=== PATIENT | female | born 1960 | race Hispanic/Latino ===

== ENCOUNTER 2022-03-29 19:49 | Emergency (ER) | payer MEDICARE ==
[2022-03-29 23:19] LABS: Basophils # (Auto) 0.1 K/mm3 (0.0-0.1); Basophils % (Auto) 1.1 % (0.0-1.8); Eosinophils # (Auto) 0.1 K/mm3 (0.0-0.4); Eosinophils % (Auto) 1.5 % (0.0-4.3); Hematocrit 47.3 % (30.3-42.9); Hemoglobin 16.5 gm/dl (10.1-14.3); Lymphocytes # (Auto) 1.6 K/mm3 (1.2-5.4); Lymphocytes % (Auto) 18.8 % (13.4-35.0); Mean Corpuscular HGB Conc 35 % (30-34); Mean Corpuscular Volume 88 fl (79-97); Monocytes # (Auto) 0.5 K/mm3 (0.0-0.8); Monocytes % (Auto) 5.8 % (0.0-7.3); Platelet Count 169 K/mm3 (140-440); Red Blood Count 5.38 M/mm3 (3.65-5.03); Red Cell Distribution Width 15.1 % (13.2-15.2)
[2022-03-29 23:40] LABS: Alanine Aminotransferase 11 units/L (7-56); Albumin 4.7 g/dL (3.9-5); BUN/Creatinine Ratio 7; Blood Urea Nitrogen 7 mg/dL (7-17); Calcium 9.3 mg/dL (8.4-10.2); Hemolysis Index 5
--- NOTE | 2022-03-30 01:42 | Emergency Department Report ---
ED Abdominal Pain HPI - General Chief Complaint: Abdominal Pain Stated Complaint: ALVARADO/ABD PAIN Time Seen by Provider: 03/30/22 00:44 Source: patient, EMS Mode of arrival: Stretcher Limitations: No Limitations - History of Present Illness MD Complaint: abdominal pain -: Gradual, days(s) (4) Location: epigastric Radiation: none Migration to: no migration Severity: mild Quality: aching, sharp Consistency: constant Associated Symptoms: denies other symptoms. denies: nausea, vomiting, dysuria, hematemesis - Related Data Home Medications Medication Instructions Recorded Confirmed Last Taken Acetaminophen [Acetaminophen 8 650 mg PO Q4H PRN 09/11/16 09/11/16 Unknown Hour] Baclofen [Lioresal] 5 mg PO TID PRN 09/11/16 09/11/16 Unknown Citalopram [celeXA] 20 mg PO QDAY 09/11/16 09/11/16 Unknown Docusate Sodium [Colace] 100 mg PO BID PRN 09/11/16 09/11/16 Unknown Folic Acid [Folvite] 1 mg PO QDAY 09/11/16 09/11/16 Unknown Gabapentin [Neurontin] 400 mg PO Q8HR 09/11/16 09/11/16 Unknown Levothyroxine [Synthroid] 150 mcg PO QAM 09/11/16 09/11/16 Unknown Magnesium Hydroxide [Milk of 30 ml PO Q12H PRN 09/11/16 09/11/16 Unknown Magnesia] Multivitamin Tab W-MINERAL 1 each PO QD 09/11/16 09/11/16 Unknown [Multiple Vitamin/Mineral (Theragran M)] Ondansetron [Zofran Odt] 4 mg PO Q8H 09/11/16 09/11/16 Unknown Simvastatin (Nf) [Zocor TAB] 20 mg PO QHS 09/11/16 09/11/16 Unknown Thiamine [Vitamin B-1] 100 mg PO QDAY 09/11/16 09/11/16 Unknown buprenorphine hcl [Subutex (Nf)] 4 mg SL BID 09/11/16 09/11/16 Unknown lisinopriL [Zestril TAB] 10 mg PO QDAY 09/11/16 09/11/16 Unknown Previous Rx's Medication Instructions Recorded Last Taken Type Hyoscyamine Subl [Levsin Sl 0.125 0.125 mg SL Q6HR PRN #20 tab 03/30/22 Unknown Rx TAB] Allergies Allergy/AdvReac Type Severity Reaction Status Date / Time codeine Allergy Rash Verified 09/11/16 15:01 Sulfa (Sulfonamide Allergy Unknown Verified 09/11/16 15:01 Antibiotics) ED Review of Systems ROS: Stated complaint: ALVARADO/ABD PAIN Other details as noted in HPI Comment: All other systems reviewed and negative Neurological: headache (Headache she woke with the other this morning is improving but not yet resolved. No nausea, no vomiting, no blurred vision) ED Past Medical Hx - Past Medical History Previous Medical History?: Yes Hx Hypertension: Yes 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) Hx Diabetes: No Hx GERD: Yes Hx Arthritis: Yes Hx Seizures: No Hx Psychiatric Treatment: Yes (anxiety,depression) Hx Dementia: No Additional medical history: fibromyaglia, hypothyroidism - Surgical History Past Surgical History?: Yes Hx Cholecystectomy: Yes - Social History Smoking Status: Never Smoker Substance Use Type: None - Medications Home Medications: Home Medications Medication Instructions Recorded Confirmed Last Taken Type Acetaminophen [Acetaminophen 8 650 mg PO Q4H PRN 09/11/16 09/11/16 Unknown History Hour] Baclofen [Lioresal] 5 mg PO TID PRN 09/11/16 09/11/16 Unknown History Citalopram [celeXA] 20 mg PO QDAY 09/11/16 09/11/16 Unknown History Docusate Sodium [Colace] 100 mg PO BID PRN 09/11/16 09/11/16 Unknown History Folic Acid [Folvite] 1 mg PO QDAY 09/11/16 09/11/16 Unknown History Gabapentin [Neurontin] 400 mg PO Q8HR 09/11/16 09/11/16 Unknown History Levothyroxine [Synthroid] 150 mcg PO QAM 09/11/16 09/11/16 Unknown History Magnesium Hydroxide [Milk of 30 ml PO Q12H PRN 09/11/16 09/11/16 Unknown History Magnesia] Multivitamin Tab W-MINERAL 1 each PO QD 09/11/16 09/11/16 Unknown History [Multiple Vitamin/Mineral (Theragran M)] Ondansetron [Zofran Odt] 4 mg PO Q8H 09/11/16 09/11/16 Unknown History Simvastatin (Nf) [Zocor TAB] 20 mg PO QHS 09/11/16 09/11/16 Unknown History Thiamine [Vitamin B-1] 100 mg PO QDAY 09/11/16 09/11/16 Unknown History buprenorphine hcl [Subutex (Nf)] 4 mg SL BID 09/11/16 09/11/16 Unknown History lisinopriL [Zestril TAB] 10 mg PO QDAY 09/11/16 09/11/16 Unknown History Hyoscyamine Subl [Levsin Sl 0.125 0.125 mg SL Q6HR PRN #20 tab 03/30/22 Unknown Rx TAB] ED Physical Exam - General Limitations: No Limitations General appearance: alert, in no apparent distress - Head Head exam: Present: atraumatic, normocephalic, normal inspection - Eye Eye exam: Present: normal appearance. Absent: conjunctival injection, nystagmus Pupils: Present: normal accommodation - ENT ENT exam: Present: mucous membranes moist - Neck Neck exam: Present: normal inspection - Respiratory Respiratory exam: Present: normal lung sounds bilaterally. Absent: respiratory distress - Cardiovascular Cardiovascular Exam: Present: regular rate, normal rhythm. Absent: systolic murmur, diastolic murmur, rubs, gallop - GI/Abdominal GI/Abdominal exam: Present: soft, normal bowel sounds - Extremities Exam Extremities exam: Present: normal inspection - Back Exam Back exam: Present: normal inspection - Neurological Exam Neurological exam: Present: alert, oriented X3, CN II-XII intact, normal gait, motor sensory deficit, reflexes normal - Psychiatric Psychiatric exam: Present: normal affect, normal mood. Absent: anxious, flat affect - Skin Skin exam: Present: warm, dry, intact, normal color. Absent: rash ED Course Vital Signs 03/29/22 20:25 Temperature 98 F Pulse Rate 100 H Respiratory 18 Rate Blood Pressure 142/92 O2 Sat by Pulse 98 Oximetry ED Medical Decision Making - Lab Data Result diagrams: 03/29/22 22:57 03/29/22 22:57 - Medical Decision Making This patient presents with abdominal pain of unclear etiology. Their evaluation has not identified a emergent etiology for the abdominal pain. Specifically, given the very benign exam, normal laboratory studies, and lack of significant risk factors, I have a very low suspicion for appendicitis, ischemic bowel, bowel perforation, or any other life threatening disease. I have discussed with the patient the level of uncertainty with undifferentiated abdominal pain and clearly explained the need to follow-up as noted on the discharge instructions, or return to the Emergency Department immediately if the pain worsens, develops fever, persistent and uncontrollable vomiting, or for any new symptoms or concerns. I discussed with the patient that this presentation today for abd ominal pain could represent a significant risk for an acute abdominal process. Although the tests in the ED were essentially normal, there is still a possibility of a process such as appendicitis, diverticulitis, cholecystitis, ulcer, early bowel obstruction, mesenteric ischemia, kidney stone, or even kidney infection which could subsequently cause disability or . The patient understands that they must return within 24 hours for a recheck or see their physician within 24 hours for re-exam due to the possibility of significant surgical or medical process. Critical care attestation.: If time is entered above; I have spent that time in minutes in the direct care of this critically ill patient, excluding procedure time. ED Disposition Clinical Impression: Abdominal pain Disposition: 01 HOME / SELF CARE / HOMELESS Is pt being admited?: No Does the pt Need Aspirin: No Condition: Stable Instructions: Abdominal Pain, Adult, Abdominal Pain (ED), Preventing Gastrointestinal Problems During Exercise Prescriptions: Hyoscyamine Subl [Levsin Sl 0.125 TAB] 0.125 mg SL Q6HR PRN #20 tab PRN Reason: ABDOMINAL PAIN Referrals: [facility] [Provider Group] - 3-5 Days
[2022-03-30 02:13] LABS: Bacteria,Urine 1+ /HPF (Negative); Bilirubin,Urine NEG (Negative); Blood,Urine NEG (Negative); Color,Urine Yellow (Yellow); Urobilinogen,Urine < 2.0 mg/dL (<2.0)
[2022-03-30] MEDS ORDERED: IBUPROFEN 800 MG TAB PO ONE (03:49)
[2022-03-30 04:49] VITALS: BP 132/85
== END 2022-03-30 04:30 | disposition home or self-care (01) ==
LOC: ED 19:49
DX: R10.9 Unspecified abdominal pain (principal); I10 Essential (primary) hypertension; Z88.2 Allergy status to sulfonamides; Z88.6 Allergy status to analgesic agent; Z90.49 Acquired absence of other specified parts of digestive tract
CPT/HCPCS: 36415; 80053; 81001; 83690; 85025; 99284

== ENCOUNTER 2022-03-30 21:47 | Emergency (ER) | payer MEDICARE ==
[2022-03-30 23:15] VITALS: BP 117/76
--- NOTE | 2022-03-31 00:55 | XRay Report ---
RIGHT KNEE 4 VIEW(S) INDICATION / CLINICAL INFORMATION: PAIN COMPARISON: None available. FINDINGS: BONES / JOINT(S): No acute fracture or subluxation. Severe tricompartmental osteoarthrosis. Large het erotopic calcifications are present along the lateral aspect of the lower femur. SOFT TISSUES: No significant abnormality. ADDITIONAL FINDINGS: None. IMPRESSION: 1. Severe degenerative changes. No acute fracture. Signer Name: Bharat Saenz II, MD Signed: 03/31/2022 12:50 AM Workstation Name: [id number]
--- NOTE | 2022-03-31 04:34 | Emergency Department Report ---
ED Lower Extremity HPI - General Chief Complaint: Extremity Injury, Lower Stated Complaint: LEFT KNEE PAIN Time Seen by Provider: 03/31/22 04:00 Source: patient Mode of arrival: Wheelchair Limitations: No Limitations - History of Present Illness Initial Comments: 61-year-old female presents emerged from complaining of right knee pain after kneeling on the ground for prolonged period of time earlier today. At the She reports an abrasion to her knee associated with some swelling and some decreased range of motion due to pain MD Complaint: knee injury -: Gradual - Related Data Home Medications Medication Instructions Recorded Confirmed Last Taken Acetaminophen [Acetaminophen 8 650 mg PO Q4H PRN 09/11/16 09/11/16 Unknown Hour] Baclofen [Lioresal] 5 mg PO TID PRN 09/11/16 09/11/16 Unknown Citalopram [celeXA] 20 mg PO QDAY 09/11/16 09/11/16 Unknown Docusate Sodium [Colace] 100 mg PO BID PRN 09/11/16 09/11/16 Unknown Folic Acid [Folvite] 1 mg PO QDAY 09/11/16 09/11/16 Unknown Gabapentin [Neurontin] 400 mg PO Q8HR 09/11/16 09/11/16 Unknown Levothyroxine [Synthroid] 150 mcg PO QAM 09/11/16 09/11/16 Unknown Magnesium Hydroxide [Milk of 30 ml PO Q12H PRN 09/11/16 09/11/16 Unknown Magnesia] Multivitamin Tab W-MINERAL 1 each PO QD 09/11/16 09/11/16 Unknown [Multiple Vitamin/Mineral (Theragran M)] Ondansetron [Zofran Odt] 4 mg PO Q8H 09/11/16 09/11/16 Unknown Simvastatin (Nf) [Zocor TAB] 20 mg PO QHS 09/11/16 09/11/16 Unknown Thiamine [Vitamin B-1] 100 mg PO QDAY 09/11/16 09/11/16 Unknown buprenorphine hcl [Subutex (Nf)] 4 mg SL BID 09/11/16 09/11/16 Unknown lisinopriL [Zestril TAB] 10 mg PO QDAY 09/11/16 09/11/16 Unknown Previous Rx's Medication Instructions Recorded Last Taken Type Hyoscyamine Subl [Levsin Sl 0.125 0.125 mg SL Q6HR PRN #20 tab 03/30/22 Unknown Rx TAB] Meloxicam, Submicronized 5 mg PO DAILY #20 cap 03/31/22 Unknown Rx [Meloxicam] Allergies Allergy/AdvReac Type Severity Reaction Status Date / Time codeine Allergy Rash Verified 09/11/16 15:01 Sulfa (Sulfonamide Allergy Unknown Verified 09/11/16 15:01 Antibiotics) ED Review of Systems ROS: Stated complaint: LEFT KNEE PAIN Other details as noted in HPI Comment: All other systems reviewed and negative ED Past Medical Hx - Past Medical History Hx Hypertension: Yes 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) Hx Diabetes: No Hx GERD: Yes Hx Arthritis: Yes Hx Seizures: No Hx Psychiatric Treatment: Yes (anxiety,depression) Hx Dementia: No Additional medical history: fibromyaglia, hypothyroidism - Surgical History Hx Cholecystectomy: Yes - Social History Smoking Status: Never Smoker Substance Use Type: None - Medications Home Medications: Home Medications Medication Instructions Recorded Confirmed Last Taken Type Acetaminophen [Acetaminophen 8 650 mg PO Q4H PRN 09/11/16 09/11/16 Unknown History Hour] Baclofen [Lioresal] 5 mg PO TID PRN 09/11/16 09/11/16 Unknown History Citalopram [celeXA] 20 mg PO QDAY 09/11/16 09/11/16 Unknown History Docusate Sodium [Colace] 100 mg PO BID PRN 09/11/16 09/11/16 Unknown History Folic Acid [Folvite] 1 mg PO QDAY 09/11/16 09/11/16 Unknown History Gabapentin [Neurontin] 400 mg PO Q8HR 09/11/16 09/11/16 Unknown History Levothyroxine [Synthroid] 150 mcg PO QAM 09/11/16 09/11/16 Unknown History Magnesium Hydroxide [Milk of 30 ml PO Q12H PRN 09/11/16 09/11/16 Unknown History Magnesia] Multivitamin Tab W-MINERAL 1 each PO QD 09/11/16 09/11/16 Unknown History [Multiple Vitamin/Mineral (Theragran M)] Ondansetron [Zofran Odt] 4 mg PO Q8H 09/11/16 09/11/16 Unknown History Simvastatin (Nf) [Zocor TAB] 20 mg PO QHS 09/11/16 09/11/16 Unknown History Thiamine [Vitamin B-1] 100 mg PO QDAY 09/11/16 09/11/16 Unknown History buprenorphine hcl [Subutex (Nf)] 4 mg SL BID 09/11/16 09/11/16 Unknown History lisinopriL [Zestril TAB] 10 mg PO QDAY 09/11/16 09/11/16 Unknown History Hyoscyamine Subl [Levsin Sl 0.125 0.125 mg SL Q6HR PRN #20 tab 03/30/22 Unknown Rx TAB] Meloxicam, Submicronized 5 mg PO DAILY #20 cap 03/31/22 Unknown Rx [Meloxicam] ED Physical Exam - General Limitations: No Limitations General appearance: alert, in no apparent distress - Head Head exam: Present: atraumatic, normocephalic - Eye Eye exam: Present: normal appearance, PERRL, EOMI Pupils: Present: normal accommodation - ENT ENT exam: Present: normal exam, normal orophraynx, mucous membranes moist - Neck Neck exam: Present: normal inspection - Respiratory Respiratory exam: Present: normal lung sounds bilaterally. Absent: respiratory distress - Cardiovascular Cardiovascular Exam: Present: regular rate, normal rhythm. Absent: systolic murmur, diastolic murmur, rubs, gallop - GI/Abdominal GI/Abdominal exam: Present: soft, normal bowel sounds - Extremities Exam Extremities exam: Present: normal inspection, tenderness (Some tenderness to the prepatellar bursa), normal capillary refill, other (Abrasion to the right knee some mild swelling noted. Normal varus and valgus [place] are negative. No popliteal masses appreciated. There is crepitus on range of motion. Pulses 2+ capillary fill is brisk) - Back Exam Back exam: Present: normal inspection - Neurological Exam Neurological exam: Present: alert, oriented X3 - Psychiatric Psychiatric exam: Present: normal affect, normal mood - Skin Skin exam: Present: warm, dry, intact, normal color. Absent: rash ED Course Vital Signs 03/30/22 21:48 Temperature 98.3 F Pulse Rate 94 H Respiratory 18 Rate Blood Pressure 117/76 [Right] O2 Sat by Pulse 99 Oximetry Critical care attestation.: If time is entered above; I have spent that time in minutes in the direct care of this critically ill patient, excluding procedure time. ED Disposition Clinical Impression: Knee pain, Prepatellar bursitis, right knee, Abrasion of knee, right Disposition: 01 HOME / SELF CARE / HOMELESS Is pt being admited?: No Does the pt Need Aspirin: No Condition: Stable Instructions: Prepatellar Bursitis, Bursitis, [id number], How to Use a Knee Brace, Acute Knee Pain, Adult, Wound Care, Adult Prescriptions: Meloxicam, Submicronized [Meloxicam] 5 mg PO DAILY #20 cap Referrals: [facility] [Provider Group] - 3-5 Days [facility] [Provider Group] - 3-5 Days
== END 2022-03-31 06:10 | disposition home or self-care (01) ==
LOC: ED 21:47
DX: S80.211A Abrasion, right knee, initial encounter (principal); M70.41 Prepatellar bursitis, right knee; Z86.73 Personal history of transient ischemic attack (TIA), and cerebral infarction without residual deficits; K21.9 Gastro-esophageal reflux disease without esophagitis; M19.90 Unspecified osteoarthritis, unspecified site; F41.9 Anxiety disorder, unspecified; F32.9 Major depressive disorder, single episode, unspecified; E03.9 Hypothyroidism, unspecified; Z98.890 Other specified postprocedural states; Z88.2 Allergy status to sulfonamides; Z88.5 Allergy status to narcotic agent; X50.1XXA Overexertion from prolonged static or awkward postures, initial encounter; Y93.89 Activity, other specified; Y92.89 Other specified places as the place of occurrence of the external cause; Y99.8 Other external cause status

== ENCOUNTER 2022-04-02 00:06 | Emergency (ER) | payer MEDICARE ==
[2022-04-02] MEDS ORDERED: KETOROLAC 60 MG/2 ML INJ IM ONE (00:43)
--- NOTE | 2022-04-02 02:16 | Emergency Department Report ---
ED Fall HPI - General Chief Complaint: Fall Stated Complaint: FALL/RT KNEE/HIP/SHOULDER PAIN Time Seen by Provider: 04/02/22 00:27 Source: EMS Mode of arrival: Ambulatory Limitations: No Limitations - History of Present Illness Initial Comments: 61-year-old female with past medical history significant for hypertension, hypothyroidism, CVA, anxiety/depression, fibromyalgia, and chronic pain syndrome presents to the ER once again with pain related complaints. Patient was accompanying her to the ER for evaluation when she stumbled and fell whi le walking with EMS. Patient complains of left shoulder pain, left hip pain, right knee, and right ankle pain. She is requesting pain medication. Patient was seen here 3 days ago for epigastric pain and 2 days ago for knee pain after kneeling on her knees for too long. Pain is moderate in intensity worse with movement and palpation. No head injury or LOC reported. - Related Data Home Medications Medication Instructions Recorded Confirmed Last Taken Acetaminophen [Acetaminophen 8 650 mg PO Q4H PRN 09/11/16 09/11/16 Unknown Hour] Baclofen [Lioresal] 5 mg PO TID PRN 09/11/16 09/11/16 Unknown Citalopram [celeXA] 20 mg PO QDAY 09/11/16 09/11/16 Unknown Docusate Sodium [Colace] 100 mg PO BID PRN 09/11/16 09/11/16 Unknown Folic Acid [Folvite] 1 mg PO QDAY 09/11/16 09/11/16 Unknown Gabapentin [Neurontin] 400 mg PO Q8HR 09/11/16 09/11/16 Unknown Levothyroxine [Synthroid] 150 mcg PO QAM 09/11/16 09/11/16 Unknown Magnesium Hydroxide [Milk of 30 ml PO Q12H PRN 09/11/16 09/11/16 Unknown Magnesia] Multivitamin Tab W-MINERAL 1 each PO QD 09/11/16 09/11/16 Unknown [Multiple Vitamin/Mineral (Theragran M)] Ondansetron [Zofran Odt] 4 mg PO Q8H 09/11/16 09/11/16 Unknown Simvastatin (Nf) [Zocor TAB] 20 mg PO QHS 09/11/16 09/11/16 Unknown Thiamine [Vitamin B-1] 100 mg PO QDAY 09/11/16 09/11/16 Unknown buprenorphine hcl [Subutex (Nf)] 4 mg SL BID 09/11/16 09/11/16 Unknown lisinopriL [Zestril TAB] 10 mg PO QDAY 09/11/16 09/11/16 Unknown Previous Rx's Medication Instructions Recorded Last Taken Type Hyoscyamine Subl [Levsin Sl 0.125 0.125 mg SL Q6HR PRN #20 tab 03/30/22 Unknown Rx TAB] Meloxicam, Submicronized 5 mg PO DAILY #20 cap 03/31/22 Unknown Rx [Meloxicam] Allergies Allergy/AdvReac Type Severity Reaction Status Date / Time codeine Allergy Rash Verified 09/11/16 15:01 Sulfa (Sulfonamide Allergy Unknown Verified 09/11/16 15:01 Antibiotics) ED Review of Systems ROS: Stated complaint: FALL/RT KNEE/HIP/SHOULDER PAIN Other details as noted in HPI Comment: All other systems reviewed and negative ED Past Medical Hx - Past Medical History Hx Hypertension: Yes 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) Hx Diabetes: No Hx GERD: Yes Hx Arthritis: Yes Hx Seizures: No Hx Psychiatric Treatment: Yes (anxiety,depression) Hx Dementia: No Additional medical history: fibromyaglia, hypothyroidism - Surgical History Hx Cholecystectomy: Yes - Social History Smoking Status: Never Smoker Substance Use Type: None - Medications Home Medications: Home Medications Medication Instructions Recorded Confirmed Last Taken Type Acetaminophen [Acetaminophen 8 650 mg PO Q4H PRN 09/11/16 09/11/16 Unknown History Hour] Baclofen [Lioresal] 5 mg PO TID PRN 09/11/16 09/11/16 Unknown History Citalopram [celeXA] 20 mg PO QDAY 09/11/16 09/11/16 Unknown History Docusate Sodium [Colace] 100 mg PO BID PRN 09/11/16 09/11/16 Unknown History Folic Acid [Folvite] 1 mg PO QDAY 09/11/16 09/11/16 Unknown History Gabapentin [Neurontin] 400 mg PO Q8HR 09/11/16 09/11/16 Unknown History Levothyroxine [Synthroid] 150 mcg PO QAM 09/11/16 09/11/16 Unknown History Magnesium Hydroxide [Milk of 30 ml PO Q12H PRN 09/11/16 09/11/16 Unknown History Magnesia] Multivitamin Tab W-MINERAL 1 each PO QD 09/11/16 09/11/16 Unknown History [Multiple Vitamin/Mineral (Theragran M)] Ondansetron [Zofran Odt] 4 mg PO Q8H 09/11/16 09/11/16 Unknown History Simvastatin (Nf) [Zocor TAB] 20 mg PO QHS 09/11/16 09/11/16 Unknown History Thiamine [Vitamin B-1] 100 mg PO QDAY 09/11/16 09/11/16 Unknown History buprenorphine hcl [Subutex (Nf)] 4 mg SL BID 09/11/16 09/11/16 Unknown History lisinopriL [Zestril TAB] 10 mg PO QDAY 09/11/16 09/11/16 Unknown History Hyoscyamine Subl [Levsin Sl 0.125 0.125 mg SL Q6HR PRN #20 tab 03/30/22 Unknown Rx TAB] Meloxicam, Submicronized 5 mg PO DAILY #20 cap 03/31/22 Unknown Rx [Meloxicam] ED Physical Exam - General Limitations: No Limitations - Other Other exam information: General: No acute distress Head: Atraumatic Eyes: normal appearance ENT: Moist mucous membranes Neck: Normal appearance, no midline tenderness Chest: Clear to auscultation bilaterally CV: Regular rate and rhythm Abdomen: Soft, normal bowel sounds, nontender, nondistended, no rebound or guarding Back: Normal inspection Extremity: Generalized left shoulder tenderness with full range of motion no deformity. Full range of motion the left hip without pain with movement. Pain with flexion of right knee without significant point tenderness. Right medial ankle tenderness on exam Neuro: Alert O x 3, no facial asymmetry, speech clear, no gross motor sensory deficit Psych: Appropriate behavior Skin: No rash ED Course Vital Signs 04/02/22 04/02/22 04/02/22 00:36 02:13 03:20 Temperature 99.8 F H Pulse Rate 90 65 Respiratory 16 16 Rate Blood Pressure 123/61 110/63 [Left] O2 Sat by Pulse 96 96 96 Oximetry ED Medical Decision Making - Radiology Data Radiology results: report reviewed no acute fracture found on the following studies Left shoulder left hip right knee right ankle - Medical Decision Making 61-year female presents to the hospital status post ground-level fall without LOC. Full range of motion of involved extremities. No fracture identified on x-ray. Arthritis noted. Patient treated with Toradol and Tylenol and will be discharged to continue her recently prescribed NSAID - Differential Diagnosis Contusion, fracture, sprain Critical Care Time: No Critical care attestation.: If time is entered above; I have spent that time in minutes in the direct care of this critically ill patient, excluding procedure time. ED Disposition Clinical Impression: Fall, Arthritis of knee, Musculoskeletal pain Disposition: HOME / SELF CARE / HOMELESS Is pt being admited?: No Does the pt Need Aspirin: No Condition: Stable Instructions: Musculoskeletal Pain, Arthritis Additional Instructions: Take Motrin or Tylenol as needed for pain. Follow-up with your doctor or doctor/clinic provided. Return if symptoms worsen as indicated by your discharge instructions. Referrals: BAILEY BRODY MD [Primary Care Provider] - 3-5 Days [facility] [Provider Group] - 3-5 Days Time of Disposition: 04:39
--- NOTE | 2022-04-02 02:27 | XRay Report ---
LEFT SHOULDER 3 VIEW(S) INDICATION / CLINICAL INFORMATION: pain s/p fall. COMPARISON: None available. FINDINGS: BONES / JOINT(S): No acute fracture or subluxation. No significant arthritis. SOFT TISSUES: No significant abnormality. ADDITIONAL FINDINGS: None. IMPRESSION: 1. No acute findings. No significant abnormality. Signer Name: Bharat Saenz II, MD Signed: 04/02/2022 2:23 AM Workstation Name: [id number]
--- NOTE | 2022-04-02 02:27 | XRay Report ---
XR ankle 3+V RT INDICATION / CLINICAL INFORMATION: pain fall COMPARISON: None available. AP and lateral VIEWS RIGHT ANKLE FINDINGS: No fracture, dislocation, or significant soft tissue abnormality. Diffuse osteopenia. IMPRESSION: 1. No acute findings. Signer Name: Bharat Saenz II, MD Signed: 04/02/2022 2:22 AM Workstation Name: [id number]
--- NOTE | 2022-04-02 02:28 | XRay Report ---
KNEE 1 VIEW(S) INDICATION / CLINICAL INFORMATION: pain s/p fall COMPARISON: None available. FINDINGS: BONES / JOINT(S): Single lateral view of the left knee demonstrate severe patellofemoral osteophyte f ormation without joint effusion or displaced fracture involving the knee. SOFT TISSUES: No significant abnormality. ADDITIONAL FINDINGS: None. IMPRESSION: 1. No evidence of acute fracture on the single view of the left knee provided. Signer Name: Bharat Saenz II, MD Signed: 04/02/2022 2:24 AM Workstation Name: [id number]
--- NOTE | 2022-04-02 02:30 | XRay Report ---
LEFT HIP 3 VIEW(S) INDICATION / CLINICAL INFORMATION: pain s/p fall COMPARISON: None available. FINDINGS: BONES / JOINT(S): No acute fracture or subluxation. No significant arthritis. Gamma nail present with in the left hip. No periprosthetic fracture. SOFT TISSUES: No significant abnormality. ADDITIONAL FINDINGS: None. IMPRESSION: 1. No acute pathology. Signer Name: Bharat Saenz II, MD Signed: 04/02/2022 2:25 AM Workstation Name: [id number]
[2022-04-02 03:20] VITALS: BP 110/63
[2022-04-02] MEDS ORDERED: ACETAMINOPHEN 325 MG TAB PO ONE (03:36)
== END 2022-04-02 04:55 | disposition home or self-care (01) ==
LOC: ED 00:06
DX: M17.9 Osteoarthritis of knee, unspecified (principal); M79.10 Myalgia, unspecified site; Z88.5 Allergy status to narcotic agent; Z88.2 Allergy status to sulfonamides; I10 Essential (primary) hypertension; W19.XXXA Unspecified fall, initial encounter; Y93.89 Activity, other specified; Y92.89 Other specified places as the place of occurrence of the external cause; Y99.8 Other external cause status
CPT/HCPCS: 73030; 73502; 73562; 73610; 96372; 99283; J1885

== ENCOUNTER 2022-04-04 07:26 | Emergency (ER) | payer MEDICARE ==
[2022-04-04 07:31] VITALS: BP 156/98
[2022-04-04] MEDS ORDERED: KETOROLAC 30 MG/1 ML INJ IM ONE (11:09)
--- NOTE | 2022-04-04 11:21 | Emergency Department Report ---
Upper Extremity - HPI Chief Complaint: Fall Stated Complaint: BACK AND RT KNEE PAIN Occurred When: 2 Days Severity: moderate Symptoms: Yes Pain with Movement, No Deformity, No Limited Range of Movement, No Numbness, No Weakness, No Swelling, No Bruising/Ecchymosis, No Laceration or Abrasion Other History: 61-year-old female with a history of fibromyalgia, hypertension ,hypothyroidism ,CVA ,anxiety and depression presents to the ED with complaint of right knee pain. States that she was evaluate 2 days ago for a fall. Patient states that she went home and continued to have pain in her right knee. Does not follow-up with orthopedic. Patient has approved x-ray with no abnormality noted. She states that she did not take any ibuprofen or Tylenol history instructed. States that pain is a current 8 out of 10. States pain is worsened when she attempts to ambulate. Denies any numbness and tingling at present time. No acute distress noted.No ill appearance noted. ED Review of Systems ROS: Stated complaint: BACK AND RT KNEE PAIN Other details as noted in HPI Constitutional: denies: chills, fever Eyes: denies: eye pain, eye discharge, vision change ENT: denies: ear pain, throat pain Respiratory: denies: cough, shortness of breath, wheezing Cardiovascular: denies: chest pain, palpitations Endocrine: no symptoms reported Gastrointestinal: denies: abdominal pain, nausea, diarrhea Genitourinary: denies: urgency, dysuria, discharge Musculoskeletal: arthralgia. 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) Hx Diabetes: No Hx GERD: Yes Hx Arthritis: Yes Hx Seizures: No Hx Psychiatric Treatment: Yes (anxiety,depression) Hx Dementia: No Additional medical history: fibromyaglia, hypothyroidism - Surgical History Hx Cholecystectomy: Yes - Social History Smoking Status: Never Smoker Substance Use Type: None - Medications Home Medications: Home Medications Medication Instructions Recorded Confirmed Last Taken Type Acetaminophen [Acetaminophen 8 650 mg PO Q4H PRN 09/11/16 09/11/16 Unknown History Hour] Baclofen [Lioresal] 5 mg PO TID PRN 09/11/16 09/11/16 Unknown History Citalopram [celeXA] 20 mg PO QDAY 09/11/16 09/11/16 Unknown History Docusate Sodium [Colace] 100 mg PO BID PRN 09/11/16 09/11/16 Unknown History Folic Acid [Folvite] 1 mg PO QDAY 09/11/16 09/11/16 Unknown History Gabapentin [Neurontin] 400 mg PO Q8HR 09/11/16 09/11/16 Unknown History Levothyroxine [Synthroid] 150 mcg PO QAM 09/11/16 09/11/16 Unknown History Magnesium Hydroxide [Milk of 30 ml PO Q12H PRN 09/11/16 09/11/16 Unknown History Magnesia] Multivitamin Tab W-MINERAL 1 each PO QD 09/11/16 09/11/16 Unknown History [Multiple Vitamin/Mineral (Theragran M)] Ondansetron [Zofran Odt] 4 mg PO Q8H 09/11/16 09/11/16 Unknown History Simvastatin (Nf) [Zocor TAB] 20 mg PO QHS 09/11/16 09/11/16 Unknown History Thiamine [Vitamin B-1] 100 mg PO QDAY 09/11/16 09/11/16 Unknown History buprenorphine hcl [Subutex (Nf)] 4 mg SL BID 09/11/16 09/11/16 Unknown History lisinopriL [Zestril TAB] 10 mg PO QDAY 09/11/16 09/11/16 Unknown History Hyoscyamine Subl [Levsin Sl 0.125 0.125 mg SL Q6HR PRN #20 tab 03/30/22 Unknown Rx TAB] Meloxicam, Submicronized 5 mg PO DAILY #20 cap 03/31/22 Unknown Rx [Meloxicam] Meloxicam [Mobic] 7.5 mg PO QDAY 15 Days #30 tablet 04/04/22 Unknown Rx Upper Extremity Exam - Exam General: Vital signs noted. No distress. Alert and acting appropriately. Head and Torso: No HEENT Abnormality, No Neck Tenderness, No Chest/Lungs Abnormality, No Abdominal Tenderness, No Back Tenderness Shoulder Exam: Yes Normal Range of Motion in Shoulder, No Shoulder Tenderness, No Clavicle Tenderness, No Shoulder Deformity, No AC Joint Tenderness Arm Exam: No Arm/Humerus Tenderness, No Arm Deformity Elbow: No Elbow Tenderness, No Normal Range of Motion in Elbow, No Elbow Deformity Forearm: No Forearm Tenderness, No Forearm Deformity, No Pain with Pronation, No Pain with Supination Wrist: Yes Normal ROM in Wrist, No Wrist Tenderness, No Wrist Deformity, No Snuffbox Tenderness, No Pain with Axial Thumb Compression Hand: Yes Normal ROM in Digit(s), No Hand Tenderness, No Hand Deformity, No Digit Tenderness, No Digit(s) Deformity, No Tendon Dysfunction CMS Exam: No Broken Skin, No Normal Distal Pulses, No Normal Capillary Refill, No Normal Distal Sensation ED Course Vital Signs 04/04/22 07:30 Pulse Rate 81 Respiratory 14 Rate Blood Pressure 156/98 [Left] O2 Sat by Pulse 95 Oximetry ED Medical Decision Making - Medical Decision Making 61-year-old female with a history of fibromyalgia, hypertension ,hypothyroidism ,CVA ,anxiety and depression presents to the ED with complaint of right knee pain. States that she was evaluate 2 days ago for a fall. Patient states that she went home and continued to have pain in her right knee. Does not follow-up with orthopedic. Patient has approved x-ray with no abnormality noted. She states that she did not take any ibuprofen or Tylenol history instructed. States that pain is a current 8 out of 10. States pain is worsened when she attempts to ambulate. Denies any numbness and tingling at present time. No acute distress noted.No ill appearance noted. Physical examination unremarkable Rechecked the patient is resting quietly quietly and comfortable and feeling better. I discussed the results of diagnostic study, my clinical impression and the plan for further treatment with the patient. Patient agrees with plan and discharge at this present time. All question addressed. I have given the patient instruction regarding a diagnosis ,expectation ,follow- up and return precaution. I explained to the patient that emergent condition may arise and to return to the ED for new worsen and any new persisting condition. I have explained the importance of following up with the primary care physician or referral physician listed below has instructed. The patient verbalized understanding of discharge instruction. Critical care attestation.: If time is entered above; I have spent that time in minutes in the direct care of this critically ill patient, excluding procedure time. ED Disposition Clinical Impression: Right knee pain Qualifiers: Chronicity: chronic Qualified Code(s): M25.561 - Pain in right knee Disposition: 01 HOME / SELF CARE / HOMELESS Is pt being admited?: No Does the pt Need Aspirin: No Condition: Stable Instructions: Chronic Knee Pain, Adult, [id number], Musculoskeletal Pain Additional Instructions: Take [id number] Tylenol arthritis for pain Return to the ED for any worsening symptom Prescriptions: Meloxicam [Mobic] 7.5 mg PO QDAY 15 Days #30 tablet Referrals: VIKASH DALEY MD [Staff Physician] - 3-5 Days Forms: Work/School Release Form(ED) Time of Disposition: 11:23
== END 2022-04-04 12:00 | disposition home or self-care (01) ==
LOC: ED 07:26
DX: M25.561 Pain in right knee (principal); I10 Essential (primary) hypertension
CPT/HCPCS: 96372; 99283; J1885

== ENCOUNTER 2022-04-10 00:13 | Emergency (ER) | payer MEDICARE ==
[2022-04-10 00:30] VITALS: BP 142/90
[2022-04-10] MEDS ORDERED: traMADol 50 MG TAB PO ONE (01:38)
--- NOTE | 2022-04-10 02:22 | XRay Report ---
RIGHT KNEE 1 VIEW(S) INDICATION / CLINICAL INFORMATION: fall COMPARISON: None available. FINDINGS: Single AP view of the right knee demonstrate no evidence of displaced fracture. Large heterotopic alireza cifications present along the lateral aspect lower finger. Additional intramedullary lesion compatibl e with bone infarction or enchondroma is present in the lower right femoral metaphysis. The articular surfaces of the femoral condyles are irregular and marginal osteophytes are noted additionally withi n the medial and lateral joint compartments. IMPRESSION: 1. Moderately advanced degenerative changes without evidence of acute osseous pathology. Signer Name: Bharat Saenz II, MD Signed: 04/10/2022 2:18 AM Workstation Name: [id number]
--- NOTE | 2022-04-10 02:50 | Emergency Department Report ---
ED Extremity Problem HPI - General Chief complaint: Extremity Injury, Lower Stated complaint: RT KNEE PAIN, N/V, COVID + Time Seen by Provider: 04/10/22 01:30 Source: EMS Mode of arrival: Wheelchair Limitations: No Limitations - History of Present Illness Initial comments: ight knee pain, 07/28 pain, denies trauma pain, chronic knee pain that flared up, Covid + pt is wearing a mask Complaint: extremity pain -: Gradual, days(s) Location: right History of Same: Yes -: Yes arthralgia Radiation: none Severity scale (0 -10): 7 Improves with: nothing - Related Data Home Medications Medication Instructions Recorded Confirmed Last Taken Acetaminophen [Acetaminophen 8 650 mg PO Q4H PRN 09/11/16 09/11/16 Unknown Hour] Baclofen [Lioresal] 5 mg PO TID PRN 09/11/16 09/11/16 Unknown Citalopram [celeXA] 20 mg PO QDAY 09/11/16 09/11/16 Unknown Docusate Sodium [Colace] 100 mg PO BID PRN 09/11/16 09/11/16 Unknown Folic Acid [Folvite] 1 mg PO QDAY 09/11/16 09/11/16 Unknown Gabapentin [Neurontin] 400 mg PO Q8HR 09/11/16 09/11/16 Unknown Levothyroxine [Synthroid] 150 mcg PO QAM 09/11/16 09/11/16 Unknown Magnesium Hydroxide [Milk of 30 ml PO Q12H PRN 09/11/16 09/11/16 Unknown Magnesia] Multivitamin Tab W-MINERAL 1 each PO QD 09/11/16 09/11/16 Unknown [Multiple Vitamin/Mineral (Theragran M)] Ondansetron [Zofran Odt] 4 mg PO Q8H 09/11/16 09/11/16 Unknown Simvastatin (Nf) [Zocor TAB] 20 mg PO QHS 09/11/16 09/11/16 Unknown Thiamine [Vitamin B-1] 100 mg PO QDAY 09/11/16 09/11/16 Unknown buprenorphine hcl [Subutex (Nf)] 4 mg SL BID 09/11/16 09/11/16 Unknown lisinopriL [Zestril TAB] 10 mg PO QDAY 09/11/16 09/11/16 Unknown Previous Rx's Medication Instructions Recorded Last Taken Type Hyoscyamine Subl [Levsin Sl 0.125 0.125 mg SL Q6HR PRN #20 tab 03/30/22 Unknown Rx TAB] Meloxicam, Submicronized 5 mg PO DAILY #20 cap 03/31/22 Unknown Rx [Meloxicam] Meloxicam [Mobic] 7.5 mg PO QDAY 15 Days #30 tablet 04/04/22 Unknown Rx Allergies Allergy/AdvReac Type Severity Reaction Status Date / Time codeine Allergy Rash Verified 04/04/22 07:31 Sulfa (Sulfonamide Allergy Unknown Verified 04/04/22 07:31 Antibiotics) ED Review of Systems ROS: Stated complaint: RT KNEE PAIN, N/V, COVID + Other details as noted in HPI Constitutional: denies: chills, fever Eyes: denies: eye pain, eye discharge, vision change ENT: denies: ear pain, throat pain Respiratory: denies: cough, shortness of breath, wheezing Cardiovascular: denies: chest pain, palpitations Endocrine: no symptoms reported Gastrointestinal: denies: abdominal pain, nausea, diarrhea Genitourinary: denies: urgency, dysuria, discharge Musculoskeletal: denies: back pain, joint swelling, arthralgia Skin: denies: rash, lesions Neurological: denies: headache, weakness, paresthesias Psychiatric: denies: anxiety, depression Hematological/Lymphatic: denies: easy bleeding, easy bruising ED Past Medical Hx - Past Medical History Previous Medical History?: Yes Hx Hypertension: Yes 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) Hx Diabetes: No Hx GERD: Yes Hx Arthritis: Yes Hx Seizures: No Hx Psychiatric Treatment: Yes (anxiety,depression) Hx Dementia: No Additional medical history: fibromyaglia, hypothyroidism - Surgical History Past Surgical History?: Yes Hx Cholecystectomy: Yes - Social History Smoking Status: Unknown if ever smoked Substance Use Type: None - Medications Home Medications: Home Medications Medication Instructions Recorded Confirmed Last Taken Type Acetaminophen [Acetaminophen 8 650 mg PO Q4H PRN 09/11/16 09/11/16 Unknown History Hour] Baclofen [Lioresal] 5 mg PO TID PRN 09/11/16 09/11/16 Unknown History Citalopram [celeXA] 20 mg PO QDAY 09/11/16 09/11/16 Unknown History Docusate Sodium [Colace] 100 mg PO BID PRN 09/11/16 09/11/16 Unknown History Folic Acid [Folvite] 1 mg PO QDAY 09/11/16 09/11/16 Unknown History Gabapentin [Neurontin] 400 mg PO Q8HR 09/11/16 09/11/16 Unknown History Levothyroxine [Synthroid] 150 mcg PO QAM 09/11/16 09/11/16 Unknown History Magnesium Hydroxide [Milk of 30 ml PO Q12H PRN 09/11/16 09/11/16 Unknown History Magnesia] Multivitamin Tab W-MINERAL 1 each PO QD 09/11/16 09/11/16 Unknown History [Multiple Vitamin/Mineral (Theragran M)] Ondansetron [Zofran Odt] 4 mg PO Q8H 09/11/16 09/11/16 Unknown History Simvastatin (Nf) [Zocor TAB] 20 mg PO QHS 09/11/16 09/11/16 Unknown History Thiamine [Vitamin B-1] 100 mg PO QDAY 09/11/16 09/11/16 Unknown History buprenorphine hcl [Subutex (Nf)] 4 mg SL BID 09/11/16 09/11/16 Unknown History lisinopriL [Zestril TAB] 10 mg PO QDAY 09/11/16 09/11/16 Unknown History Hyoscyamine Subl [Levsin Sl 0.125 0.125 mg SL Q6HR PRN #20 tab 03/30/22 Unknown Rx TAB] Meloxicam, Submicronized 5 mg PO DAILY #20 cap 03/31/22 Unknown Rx [Meloxicam] Meloxicam [Mobic] 7.5 mg PO QDAY 15 Days #30 tablet 04/04/22 Unknown Rx ED Physical Exam - General Limitations: No Limitations General appearance: alert, in no apparent distress - Head Head exam: Present: atraumatic, normocephalic - Eye Eye exam: Present: normal appearance - ENT ENT exam: Present: mucous membranes moist - Neck Neck exam: Present: normal inspection - Respiratory Respiratory exam: Present: normal lung sounds bilaterally. Absent: respiratory distress - Cardiovascular Cardiovascular Exam: Present: regular rate, normal rhythm. Absent: systolic murmur, diastolic murmur, rubs, gallop - GI/Abdominal GI/Abdominal exam: Present: soft, normal bowel sounds - Extremities Exam Extremities exam: Present: normal inspection - Expanded Lower Extremity Exam Right Knee exam: Present: tenderness - Back Exam Back exam: Present: normal inspection - Neurological Exam Neurological exam: Present: alert, oriented X3 - Psychiatric Psychiatric exam: Present: normal affect, normal mood - Skin Skin exam: Present: warm, dry, intact, normal color. Absent: rash ED Course Vital Signs 04/10/22 00:20 Temperature 98.9 F Pulse Rate 76 Respiratory 18 Rate Blood Pressure 142/90 O2 Sat by Pulse 95 Oximetry Critical care attestation.: If time is entered above; I have spent that time in minutes in the direct care of this critically ill patient, excluding procedure time. ED Disposition Clinical Impression: Right knee pain Disposition: 01 HOME / SELF CARE / HOMELESS Is pt being admited?: No Condition: Stable
== END 2022-04-10 05:41 | disposition home or self-care (01) ==
LOC: ED 00:13
DX: M25.561 Pain in right knee (principal); I10 Essential (primary) hypertension; Z88.2 Allergy status to sulfonamides
CPT/HCPCS: 99283

== ENCOUNTER 2022-04-26 05:13 | Emergency (ER) | payer MEDICARE ==
[2022-04-26 05:22] VITALS: BP 126/80
[2022-04-26] MEDS ORDERED: KETOROLAC 30 MG/1 ML INJ IM ONE (11:07)
--- NOTE | 2022-04-26 11:21 | Emergency Department Report ---
ED General Adult HPI - General Chief complaint: Extremity Injury, Lower Stated complaint: BODY/NERV PAIN Time Seen by Provider: 04/26/22 10:52 Source: patient, EMS Mode of arrival: Stretcher Limitations: No Limitations - History of Present Illness Initial comments: Patient 61-year-old female with history of arthralgia who presents for low back pain radiating to right lower extremity pain is radiated is described as 5/10 aching tingling. Patient denies new fall injury or trauma states pain is generally controlled with tramadol. Patient denies fevers or chills has been no loss or decrease in bowel or bladder function. Patient ambulated self to ED today. Gait is steady. Patient denies dysuria frequency or urgency. Patient denies other complaint - Related Data Home Medications Medication Instructions Recorded Confirmed Last Taken Acetaminophen [Acetaminophen 8 650 mg PO Q4H PRN 09/11/16 09/11/16 Unknown Hour] Baclofen [Lioresal] 5 mg PO TID PRN 09/11/16 09/11/16 Unknown Citalopram [celeXA] 20 mg PO QDAY 09/11/16 09/11/16 Unknown Docusate Sodium [Colace] 100 mg PO BID PRN 09/11/16 09/11/16 Unknown Folic Acid [Folvite] 1 mg PO QDAY 09/11/16 09/11/16 Unknown Gabapentin [Neurontin] 400 mg PO Q8HR 09/11/16 09/11/16 Unknown Levothyroxine [Synthroid] 150 mcg PO QAM 09/11/16 09/11/16 Unknown Magnesium Hydroxide [Milk of 30 ml PO Q12H PRN 09/11/16 09/11/16 Unknown Magnesia] Multivitamin Tab W-MINERAL 1 each PO QD 09/11/16 09/11/16 Unknown [Multiple Vitamin/Mineral (Theragran M)] Ondansetron [Zofran Odt] 4 mg PO Q8H 09/11/16 09/11/16 Unknown Simvastatin (Nf) [Zocor TAB] 20 mg PO QHS 09/11/16 09/11/16 Unknown Thiamine [Vitamin B-1] 100 mg PO QDAY 09/11/16 09/11/16 Unknown buprenorphine hcl [Subutex (Nf)] 4 mg SL BID 09/11/16 09/11/16 Unknown lisinopriL [Zestril TAB] 10 mg PO QDAY 09/11/16 09/11/16 Unknown Previous Rx's Medication Instructions Recorded Last Taken Type Hyoscyamine Subl [Levsin Sl 0.125 0.125 mg SL Q6HR PRN #20 tab 03/30/22 Unknown Rx TAB] Meloxicam, Submicronized 5 mg PO DAILY #20 cap 03/31/22 Unknown Rx [Meloxicam] traMADoL [Ultram 50 MG tab] 50 mg PO Q4HR PRN #10 tablet 04/10/22 Unknown Rx Meloxicam [Mobic] 7.5 mg PO QDAY 30 Days #30 tablet 04/26/22 Unknown Rx Menthol/Camphor [[place] 1 applicatio TP QID PRN #1 tube 04/26/22 Unknown Rx Ointment] Allergies Allergy/AdvReac Type Severity Reaction Status Date / Time codeine Allergy Rash Verified 04/04/22 07:31 Sulfa (Sulfonamide Allergy Unknown Verified 04/04/22 07:31 Antibiotics) ED Review of Systems ROS: Stated complaint: BODY/NERV PAIN Other details as noted in HPI Constitutional: denies: chills, fever Eyes: denies: eye pain, eye discharge, vision change ENT: denies: ear pain, throat pain Respiratory: denies: cough, shortness of breath, wheezing Cardiovascular: denies: chest pain, palpitations Endocrine: no symptoms reported Gastrointestinal: denies: abdominal pain, nausea, vomiting, diarrhea Genitourinary: denies: urgency, dysuria, discharge Musculoskeletal: back pain, arthralgia. 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) Hx Diabetes: No Hx GERD: Yes Hx Arthritis: Yes Hx Seizures: No Hx Psychiatric Treatment: Yes (anxiety,depression) Hx Dementia: No Additional medical history: fibromyaglia, hypothyroidism, NEUROPATHY - Surgical History Past Surgical History?: Yes Hx Cholecystectomy: Yes - Social History Smoking Status: Never Smoker Substance Use Type: None - Medications Home Medications: Home Medications Medication Instructions Recorded Confirmed Last Taken Type Acetaminophen [Acetaminophen 8 650 mg PO Q4H PRN 09/11/16 09/11/16 Unknown History Hour] Baclofen [Lioresal] 5 mg PO TID PRN 09/11/16 09/11/16 Unknown History Citalopram [celeXA] 20 mg PO QDAY 09/11/16 09/11/16 Unknown History Docusate Sodium [Colace] 100 mg PO BID PRN 09/11/16 09/11/16 Unknown History Folic Acid [Folvite] 1 mg PO QDAY 09/11/16 09/11/16 Unknown History Gabapentin [Neurontin] 400 mg PO Q8HR 09/11/16 09/11/16 Unknown History Levothyroxine [Synthroid] 150 mcg PO QAM 09/11/16 09/11/16 Unknown History Magnesium Hydroxide [Milk of 30 ml PO Q12H PRN 09/11/16 09/11/16 Unknown History Magnesia] Multivitamin Tab W-MINERAL 1 each PO QD 09/11/16 09/11/16 Unknown History [Multiple Vitamin/Mineral (Theragran M)] Ondansetron [Zofran Odt] 4 mg PO Q8H 09/11/16 09/11/16 Unknown History Simvastatin (Nf) [Zocor TAB] 20 mg PO QHS 09/11/16 09/11/16 Unknown History Thiamine [Vitamin B-1] 100 mg PO QDAY 09/11/16 09/11/16 Unknown History buprenorphine hcl [Subutex (Nf)] 4 mg SL BID 09/11/16 09/11/16 Unknown History lisinopriL [Zestril TAB] 10 mg PO QDAY 09/11/16 09/11/16 Unknown History Hyoscyamine Subl [Levsin Sl 0.125 0.125 mg SL Q6HR PRN #20 tab 03/30/22 Unknown Rx TAB] Meloxicam, Submicronized 5 mg PO DAILY #20 cap 03/31/22 Unknown Rx [Meloxicam] traMADoL [Ultram 50 MG tab] 50 mg PO Q4HR PRN #10 tablet 04/10/22 Unknown Rx Meloxicam [Mobic] 7.5 mg PO QDAY 30 Days #30 tablet 04/26/22 Unknown Rx Menthol/Camphor [[place] 1 applicatio TP QID PRN #1 tube 04/26/22 Unknown Rx Ointment] ED Physical Exam - General Limitations: No Limitations General appearance: alert, in no apparent distress - Head Head exam: Present: normocephalic - Eye Eye exam: Present: EOMI Pupils: Present: normal accommodation - ENT ENT exam: Present: mucous membranes moist - Neck Neck exam: Present: normal inspection, full ROM. Absent: tenderness - Respiratory Respiratory exam: Present: normal lung sounds bilaterally. Absent: respiratory distress, wheezes - Cardiovascular Cardiovascular Exam: Present: regular rate, normal rhythm, normal heart sounds. Absent: systolic murmur, diastolic murmur, rubs, gallop - GI/Abdominal GI/Abdominal exam: Present: soft. Absent: distended, tenderness - Rectal Rectal exam: Present: deferred - Extremities Exam Extremities exam: Present: normal inspection, full ROM, normal capillary refill. Absent: tenderness - Back Exam Back exam: Present: normal inspection, full ROM. Absent: CVA tenderness (R), CVA tenderness (L), paraspinal tenderness, vertebral tenderness - Expanded Back Exam Expanded Back exam: Absent: saddle anesthesia Back exam: Positive Straight Leg Raise: Right, Left - Neurological Exam Neurological exam: Present: alert, oriented X3, CN II-XII intact, normal gait, motor sensory deficit. Absent: reflexes normal - Expanded Neurological Exam Expanded Patient oriented to: Present: person, place, time Speech: Present: fluid speech Motor strength exam: RUE: 5, LUE: 5, RLE: 5, LLE: 5 DTR: knee (R): 1+, knee (L): 1+ Best Eye Response ([place]): (4) open spontaneously Best Motor Response ([place]): (6) obeys commands Best Verbal Response ([place]): (5) oriented [place] Total: 15 - Psychiatric Psychiatric exam: Present: normal affect, normal mood - Skin Skin exam: Present: warm, dry, intact, normal color. Absent: rash ED Course Vital Signs 04/26/22 05:14 Temperature 98.4 F Pulse Rate 108 H Respiratory 18 Rate Blood Pressure 126/80 O2 Sat by Pulse 100 Oximetry ED Medical Decision Making - Medical Decision Making This is acute on chronic low back pain. Patient voiding without difficulty having bowel movements without difficulty patient is amatory with steady gait. There is no focal weakness. There is been no loss or decrease in bowel or bladder function. Patient is amatory with steady gait. Patient has bilateral positive straight leg. Plan NSAIDs, analgesic balm, back exercises follow-up with primary care doctor in 2 to 3 days. Patient verbalized agreement and understanding with discharge plan. Patient DC'd home in stable condition at this time Critical care attestation.: If time is entered above; I have spent that time in minutes in the direct care of this critically ill patient, excluding procedure time. ED Disposition Clinical Impression: Low back strain Qualifiers: Encounter type: initial encounter Qualified Code(s): S39.012A - Strain of muscle, fascia and tendon of lower back, initial encounter Disposition: HOME / SELF CARE / HOMELESS Is pt being admited?: No Does the pt Need Aspirin: No Condition: Stable Instructions: Low Back Sprain or Strain Rehab-SportsMed Additional Instructions: Take medications as prescribed, moist heat therapy, low back exercises. Follow-up with your primary care doctor in 2 to 3 days. Return to emergency department should symptoms worsen. Prescriptions: Meloxicam [Mobic] 7.5 mg PO QDAY 30 Days #30 tablet Menthol/Camphor [[place] Ointment] 1 applicatio TP QID PRN #1 tube PRN Reason: Pain Referrals: JOANNE FULLER MD [Staff Physician] - 3-5 Days Time of Disposition: 11:29
== END 2022-04-26 12:39 | disposition home or self-care (01) ==
LOC: ED 05:13
DX: S39.012A Strain of muscle, fascia and tendon of lower back, initial encounter (principal); Z88.2 Allergy status to sulfonamides; Z88.6 Allergy status to analgesic agent; X58.XXXA Exposure to other specified factors, initial encounter; Y93.89 Activity, other specified; Y92.89 Other specified places as the place of occurrence of the external cause; Y99.8 Other external cause status
CPT/HCPCS: 96372; 99283; J1885

== ENCOUNTER 2022-04-26 21:50 | Emergency (ER) | payer MEDICARE ==
[2022-04-27] MEDS ORDERED: fentaNYL 100 MCG/2 ML INJ IM ONE (09:28)
[2022-04-27] MEDS ORDERED: ONDANSETRON 4 MG/2 ML INJ IM ONE (09:28)
--- NOTE | 2022-04-27 09:31 | Emergency Department Report ---
HPI - General Chief Complaint: Extremity Injury, Lower Time Seen by Provider: 04/27/22 09:20 - HPI HPI: Room 22 Patient is a 61-year-old female present with a chief complaint of chronic leg pain. Patient states she has history of chronic bilateral leg pain from neuropathy and is requesting baclofen. Patient was seen here yesterday for the same and given several prescriptions for pain. Patient states the Toradol she was given has not helped. Patient states she has not been seen in the pain clinic for a long time ED Past Medical Hx - Past Medical History Hx Hypertension: Yes 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) Hx GERD: Yes Hx Arthritis: Yes Hx Psychiatric Treatment: Yes (anxiety,depression) Additional medical history: fibromyaglia, hypothyroidism, NEUROPATHY - Surgical History Past Surgical History?: Yes Hx Cholecystectomy: Yes - Family History Family history: no significant - Social History Smoking Status: Never Smoker Substance Use Type: None - Medications Home Medications: Home Medications Medication Instructions Recorded Confirmed Last Taken Type Acetaminophen [Acetaminophen 8 650 mg PO Q4H PRN 09/11/16 09/11/16 Unknown History Hour] Baclofen [Lioresal] 5 mg PO TID PRN 09/11/16 09/11/16 Unknown History Citalopram [celeXA] 20 mg PO QDAY 09/11/16 09/11/16 Unknown History Docusate Sodium [Colace] 100 mg PO BID PRN 09/11/16 09/11/16 Unknown History Folic Acid [Folvite] 1 mg PO QDAY 09/11/16 09/11/16 Unknown History Gabapentin [Neurontin] 400 mg PO Q8HR 09/11/16 09/11/16 Unknown History Levothyroxine [Synthroid] 150 mcg PO QAM 09/11/16 09/11/16 Unknown History Magnesium Hydroxide [Milk of 30 ml PO Q12H PRN 09/11/16 09/11/16 Unknown History Magnesia] Multivitamin Tab W-MINERAL 1 each PO QD 09/11/16 09/11/16 Unknown History [Multiple Vitamin/Mineral (Theragran M)] Ondansetron [Zofran Odt] 4 mg PO Q8H 09/11/16 09/11/16 Unknown History Simvastatin (Nf) [Zocor TAB] 20 mg PO QHS 09/11/16 09/11/16 Unknown History Thiamine [Vitamin B-1] 100 mg PO QDAY 09/11/16 09/11/16 Unknown History buprenorphine hcl [Subutex (Nf)] 4 mg SL BID 09/11/16 09/11/16 Unknown History lisinopriL [Zestril TAB] 10 mg PO QDAY 09/11/16 09/11/16 Unknown History Hyoscyamine Subl [Levsin Sl 0.125 0.125 mg SL Q6HR PRN #20 tab 03/30/22 Unknown Rx TAB] Meloxicam, Submicronized 5 mg PO DAILY #20 cap 03/31/22 Unknown Rx [Meloxicam] traMADoL [Ultram 50 MG tab] 50 mg PO Q4HR PRN #10 tablet 04/10/22 Unknown Rx Meloxicam [Mobic] 7.5 mg PO QDAY 30 Days #30 tablet 04/26/22 Unknown Rx Menthol/Camphor [[place] 1 applicatio TP QID PRN #1 tube 04/26/22 Unknown Rx Ointment] Baclofen 5 mg PO TID PRN #20 04/27/22 Unknown Rx ED Review of Systems ROS: Stated complaint: MARCELO Other details as noted in HPI Constitutional: no symptoms reported Eyes: denies: eye pain ENT: denies: throat pain Respiratory: no symptoms reported Cardiovascular: denies: chest pain Endocrine: no symptoms reported Gastrointestinal: denies: abdominal pain Genitourinary: denies: dysuria Musculoskeletal: myalgia Neurological: denies: headache Physical Exam - Physical Exam Vital Signs: Vital Signs 04/26/22 21:51 Temperature 98 F Pulse Rate 102 H Respiratory 18 Rate Blood Pressure 158/109 O2 Sat by Pulse 98 Oximetry Physical Exam: GENERAL: The patient is well-developed well-nourished female lying on stretcher not appearing to be in acute distress. [] HEENT: Normocephalic. Atraumatic. Extraocular motions are intact. Patient has moist mucous membranes. NECK: Supple. Trachea midline CHEST/LUNGS: Clear to auscultation. There is no respiratory distress noted. HEART/CARDIOVASCULAR: Regular. There is no tachycardia. There is no gallop rub or murmur. ABDOMEN: Abdomen is soft, nontender. Patient has normal bowel sounds. There is no abdominal distention. SKIN: There is no rash. There is no edema. There is no diaphoresis. NEURO: The patient is awake, alert, and oriented. The patient is cooperative. The patient has no focal neurologic deficits. The patient has normal speech. GCS 15 MUSCULOSKELETAL: There is no evidence of acute injury. ED Course Vital Signs 04/26/22 21:51 Temperature 98 F Pulse Rate 102 H Respiratory 18 Rate Blood Pressure 158/109 O2 Sat by Pulse 98 Oximetry ED Medical Decision Making - Differential Diagnosis Chronic leg pain Critical care attestation.: If time is entered above; I have spent that time in minutes in the direct care of this critically ill patient, excluding procedure time. ED Disposition Clinical Impression: Chronic leg pain Disposition: HOME / SELF CARE / HOMELESS Is pt being admited?: No Does the pt Need Aspirin: No Condition: Stable Instructions: What You Need to Know About Chronic Back Pain Additional Instructions: Return to the emergency department should you develop worsening symptoms, inability to tolerate food or liquids, high fever or any other concerns Prescriptions: Baclofen 5 mg PO TID PRN #20 PRN Reason: Pain , Severe (7-10) Referrals: BAILEY BRODY MD [Primary Care Provider] - 3-5 Days Alycia SEGURA MD [Staff Physician] - 3-5 Days (Dr. Segura is a pain management physician. Please follow-up with him to be established as a patient) Time of Disposition: 09:33
[2022-04-27 10:10] VITALS: BP 112/81
== END 2022-04-27 10:22 | disposition home or self-care (01) ==
LOC: ED 21:50
DX: G89.29 Other chronic pain (principal); M79.604 Pain in right leg; M79.605 Pain in left leg; I10 Essential (primary) hypertension; Z86.73 Personal history of transient ischemic attack (TIA), and cerebral infarction without residual deficits; K21.9 Gastro-esophageal reflux disease without esophagitis; M19.90 Unspecified osteoarthritis, unspecified site; F41.9 Anxiety disorder, unspecified; F32.9 Major depressive disorder, single episode, unspecified; E03.9 Hypothyroidism, unspecified; Z98.890 Other specified postprocedural states
CPT/HCPCS: 96372; 99283; J2405; J3010